=== PATIENT | male | born 1995 | race Caucasian/White ===

== ENCOUNTER 2018-10-11 23:37 | Emergency (ER) | payer OTHER ==
[~2018-10-11] VITALS: Ht 182.9 cm; Wt 124.7 kg
[2018-10-12 00:53] LABS: Basophils # (auto) 0 uL; Basophils % (auto) 0.5 % (0.0-2.0); Eosinophils # (auto) 0 uL; Eosinophils % (auto) 0.4 % (0.0-7.0); Hematocrit 46.5 % (41.0-53.0); Hemoglobin 15.9 g/dL (13.5-17.5); Lymphocytes # (auto) 1.2 uL; Lymphocytes % (auto) 13.3 % (10.0-50.0); Mean Corpuscular Hemoglobin 29.1 pg (28.0-32.0); Mean Corpuscular Hgb Conc. 34.3 g/dL (32.0-36.0); Mean Corpuscular Volume 84.9 fL (80.0-100.0); Monocytes # (auto) 0.4 uL; Monocytes % (auto) 4.6 % (0.0-12.0); Neutrophils # (auto) 7.6 uL; Neutrophils % (auto) 81.2 % (37.0-80.0); Nucleated Red Blood Cells % 0.1 %; Platelet Count (auto) 324 10^3/uL (140-450); Red Blood Cells 5.48 10^6/uL (4.5-5.90); Red Cell Distribution Width 13.4 % (11.8-14.3); White Blood Cell 9.3 10^3/uL (4.4-10.8)
[2018-10-12 01:09] LABS: INR 0.96 (0.9-1.15); Partial Thromboplastin Time 30.6 sec (23.78-33.04); Prothrombin Time 10.3 sec (9.27-12.13)
[2018-10-12 01:10] LABS: BUN/Creatinine Ratio 16.2; Calcium 8.7 mg/dL (8.5-10.1); Magnesium 1.9 mg/dL (1.6-2.6); Potassium 3.9 mmol/L (3.5-5.1)
[2018-10-12 01:13] LABS: Bilirubin, Total 0.4 mg/dL (0.2-1.0); Total Protein 7.8 g/dL (6.4-8.2)
[2018-10-12 01:55] LABS: Urine Bacteria NONE SEEN /hpf (None Seen); Urine Blood Negative /uL (Negative); Urine Mucus FEW (None Seen); Urine Specific Gravity 1.035 (1.001-1.035); Urine WBC 1 /hpf (0 - 3)
[2018-10-12] MEDS ORDERED: PANTOPRAZOLE 40 MG TAB PO ONE (05:30)
[2018-10-12 05:32] VITALS: BP 126/64
== END 2018-10-12 05:44 | disposition home or self-care (01) ==
LOC: ER 23:40
DX: K52.9 Noninfective gastroenteritis and colitis, unspecified (principal)
CPT/HCPCS: 36415; 74176; 80053; 81001; 82150; 83690; 83735; 85025; 85610; 85730